=== PATIENT | male | born 1970 | race Caucasian/White ===

== ENCOUNTER 2017-07-29 22:54 | Emergency (ER) | payer MEDICAID ==
[2017-07-30 04:49] VITALS: BP 107/63
== END 2017-07-30 05:01 | disposition home or self-care (01) ==
LOC: ED 22:54
DX: S62.620A Displaced fracture of middle phalanx of right index finger, initial encounter for closed fracture (principal); S61.210A Laceration without foreign body of right index finger without damage to nail, initial encounter; S61.212A Laceration without foreign body of right middle finger without damage to nail, initial encounter; F10.129 Alcohol abuse with intoxication, unspecified; E07.9 Disorder of thyroid, unspecified; W20.8XXA Other cause of strike by thrown, projected or falling object, initial encounter; Y93.89 Activity, other specified; Y99.8 Other external cause status; Y92.89 Other specified places as the place of occurrence of the external cause
CPT/HCPCS: 90714; A4570; J0690; J2001; Q0092